=== PATIENT | male | born 1995 | race American Indian/Alaskan Native ===

== ENCOUNTER 2017-04-23 15:36 | Emergency (ER) | payer OTHER ==
[2017-04-23] MEDS ORDERED: FLEXERIL PO ONE (19:56)
[2017-04-23] MEDS ORDERED: NORCO 5/325 PO ONE (19:56)
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
[2017-04-23 21:14] VITALS: BP 138/94
== END 2017-04-23 21:13 | disposition home or self-care (01) ==
LOC: ED 15:36
DX: S16.1XXA Strain of muscle, fascia and tendon at neck level, initial encounter (principal); M62.830 Muscle spasm of back; F17.200 Nicotine dependence, unspecified, uncomplicated; V49.59XA Passenger injured in collision with other motor vehicles in traffic accident, initial encounter; Y93.9 Activity, unspecified; Y92.89 Other specified places as the place of occurrence of the external cause; Y99.9 Unspecified external cause status
CPT/HCPCS: 99282

== ENCOUNTER 2021-10-05 07:11 | Emergency (ER) | payer OTHER ==
[2021-10-05 07:28] VITALS: BP 148/79
[2021-10-05 08:28] LABS: Basophils % (Auto) 0.4 % (0.0-1.8); Hematocrit 45.6 % (35.5-45.6); Hemoglobin 14.8 gm/dl (11.8-15.2); Lymphocytes # (Auto) 0.9 K/mm3 (1.2-5.4); Lymphocytes % (Auto) 14.4 % (13.4-35.0); Mean Corpuscular HGB Conc 32 % (32-34); Mean Corpuscular Volume 86 fl (84-94); Monocytes # (Auto) 0.8 K/mm3 (0.0-0.8); Monocytes % (Auto) 12.5 % (0.0-7.3); Platelet Count 204 K/mm3 (140-440); Red Blood Count 5.33 M/mm3 (3.65-5.03); Red Cell Distribution Width 14.1 % (13.2-15.2)
[2021-10-05] MEDS ORDERED: levETIRAcetam 1000 MG/NS 0.75% 1,000 MG/100 ML BAG IV ONE (08:28)
--- NOTE | 2021-10-05 08:31 | Emergency Department Report ---
ED Seizure HPI - General Chief Complaint: Medical Clearance Stated Complaint: SEIZURE Time Seen by Provider: 10/05/21 07:58 Source: patient Mode of arrival: Ambulatory Limitations: No Limitations - History of Present Illness Initial Comments: Patient is 25 years old male with no significant past medical history. Patient presented to the ER for evaluation of possible seizure. Patient found by his with shaking and jerking movement and his eyes rolling back. Patient stated that he woke up and found EMS around his bed. Patient stated that he ne madi had any history of seizure before. He denied any drug abuse recently. Patient is complaining of headache. He denied any injury. MD Complaint: possible seizure -: This morning Description of Episode: loss of consciousness, tonic-clonic movement, post-event confusion Witnessed:: Yes Trauma: No Seizure History: none Place: home Possible Precipitating Event: none Associated Symptoms: denies other symptoms Treatments Prior to Arrival: none - Related Data Previous Rx's Medication Instructions Recorded Last Taken Type Cyclobenzaprine [Flexeril] 10 mg PO TID PRN #15 tablet 04/23/17 Unknown Rx Ibuprofen [Motrin] 600 mg PO Q8H PRN #15 tablet 04/23/17 Unknown Rx Doxycycline Hyclate 100 mg PO BID #20 tablet. 04/11/20 Unknown Rx Phenazopyridine [Pyridium] 200 mg PO TID #10 tab 04/11/20 Unknown Rx Allergies Allergy/AdvReac Type Severity Reaction Status Date / Time bacitracin Allergy Unknown Verified 04/23/17 16:08 [From Neosporin Plus] bacitracin zinc Allergy Unknown Verified 04/23/17 16:08 [From Neosporin Plus] lidocaine Allergy Unknown Verified 04/23/17 16:08 [From Neosporin Plus] neomycin sulfate Allergy Unknown Verified 04/23/17 16:08 [From Neosporin Plus] penicillin V Allergy Unknown Verified 10/05/21 07:24 Penicillins Allergy Unknown Verified 04/23/17 16:08 polymyxin B Allergy Unknown Verified 04/23/17 16:08 [From Neosporin Plus] polymyxin B sulfate Allergy Unknown Verified 04/23/17 16:08 [From Neosporin Plus] pramoxine Allergy Unknown Verified 04/23/17 16:08 [From Neosporin Plus] pramoxine HCl Allergy Unknown Verified 04/23/17 16:08 [From Neosporin Plus] ED Review of Systems ROS: Stated complaint: SEIZURE Other details as noted in HPI Comment: All other systems reviewed and negative Constitutional: denies: chills, fever Respiratory: denies: cough, shortness of breath, SOB with exertion Cardiovascular: denies: chest pain, palpitations Gastrointestinal: denies: abdominal pain, nausea, vomiting Musculoskeletal: denies: back pain Neurological: headache. denies: weakness, numbness, paresthesias, confusion, abnormal gait ED Past Medical Hx - Past Medical History Previous Medical History?: No - Surgical History Past Surgical History?: No - Social History Smoking Status: Never Smoker Substance Use Type: None - Medications Home Medications: Home Medications Medication Instructions Recorded Confirmed Last Taken Type Cyclobenzaprine [Flexeril] 10 mg PO TID PRN #15 tablet 04/23/17 Unknown Rx Ibuprofen [Motrin] 600 mg PO Q8H PRN #15 tablet 04/23/17 Unknown Rx Doxycycline Hyclate 100 mg PO BID #20 tablet. 04/11/20 Unknown Rx Phenazopyridine [Pyridium] 200 mg PO TID #10 tab 04/11/20 Unknown Rx ED Physical Exam - General Limitations: No Limitations General appearance: alert, in no apparent distress - Head Head exam: Present: atraumatic, normocephalic, normal inspection - Eye Eye exam: Present: normal appearance, PERRL - ENT ENT exam: Present: normal exam, normal orophraynx, mucous membranes moist - Neck Neck exam: Present: normal inspection, full ROM. Absent: tenderness, meningismus - Respiratory Respiratory exam: Present: normal lung sounds bilaterally - Cardiovascular Cardiovascular Exam: Present: regular rate, normal rhythm, normal heart sounds - GI/Abdominal GI/Abdominal exam: Present: soft, normal bowel sounds. Absent: distended, tenderness, guarding, rebound, rigid, organomegaly, mass, bruit, pulsatile mass, hernia - Extremities Exam Extremities exam: Present: normal inspection, full ROM, normal capillary refill. Absent: tenderness, pedal edema, joint swelling, calf tenderness - Back Exam Back exam: Present: normal inspection, full ROM. Absent: CVA tenderness (R), CVA tenderness (L) - Neurological Exam Neurological exam: Present: alert, oriented X3, CN II-XII intact, normal gait, reflexes normal. Absent: motor sensory deficit - Psychiatric Psychiatric exam: Present: normal mood - Skin Skin exam: Present: warm, intact, normal color ED Course Vital Signs 10/05/21 07:27 Temperature 99.5 F Pulse Rate 79 Respiratory 20 Rate Blood Pressure 148/79 [Right] O2 Sat by Pulse 100 Oximetry ED Medical Decision Making - Lab Data Result diagrams: 10/05/21 08:12 10/05/21 08:12 - Radiology Data Radiology results: report reviewed - Medical Decision Making Patient is 25 years old male with no significant past medical history. Patient presented to the ER for evaluation of possible seizure. Patient found by his with shaking and jerking movement and his eyes rolling back. Patient stated that he woke up and found EMS around his bed. Patient stated that he never had any history of seizure before. He denied any drug abuse recently. Patient is complaining of headache. He denied any injury. No seizure activity is observed in the ER. Patient received Keppra 1 g IV. Labs reviewed and is unremarkable. CT brain is negative for acute finding. Patient also received Toradol for headache. Patient started on Keppra and advised to follow-up with neurologist in the next 2 to 3 days and to return to the ER if he develop any new symptoms. Patient also advised to not operate any heavy machinery or drive. Critical care attestation.: If time is entered above; I have spent that time in minutes in the direct care of this critically ill patient, excluding procedure time. ED Disposition Clinical Impression: New onset seizure, Headache Disposition: 01 HOME / SELF CARE / HOMELESS Is pt being admited?: No Condition: Stable Instructions: Seizure, Adult Referrals: KAREY MACIEL MD [Referring] - 3-5 Days
[2021-10-05 08:51] LABS: Alanine Aminotransferase 25 units/L (7-56); Albumin 5.3 g/dL (3.9-5); BUN/Creatinine Ratio 17; Blood Urea Nitrogen 17 mg/dL (9-20); Calcium 9.3 mg/dL (8.4-10.2); Hemolysis Index 8
[2021-10-05 08:53] LABS: Bilirubin,Direct < 0.2 mg/dL (0-0.2)
--- NOTE | 2021-10-05 10:02 | Cat Scan Report ---
CT head without contrast INDICATION : NEW ONSET SEIZURE. TECHNIQUE: Axial imaging performed from the skull apex through the skull base without the use of con trast. All CT scans at this location are performed using CT dose reduction for ALARA by means of aut omated exposure control. COMPARISON: None FINDINGS: Parenchyma: No acute intracranial hemorrhage or parenchymal abnormality. Ventricles: Ventricles are normal in size and appear symmetric. Soft tissues: Soft tissues including the orbits appear normal. Bones: No acute osseous abnormality. Sinuses: Sinuses and mastoid air cells are clear. IMPRESSION: No acute abnormality. Signer Name: El Sidhu MD Signed: 10/05/2021 9:58 AM Workstation Name: [id number]
[2021-10-05 11:14] LABS: Amphetamine Screen,Urine Negative; Benzodiazepines Screen,Urine Negative; Cocaine Screen,Urine Negative; Methadone Screen,Urine Negative; Opiate Screen,Urine Negative
[2021-10-05 11:34] LABS: Cannabinoid Screen,Urine Positive
[2021-10-05] MEDS ORDERED: KETOROLAC 30 MG/1 ML INJ IV ONE (11:45)
[2021-10-05 11:46] LABS: Amorphous Crystals,Urine Few; Bacteria,Urine 1+ /HPF (Negative); Bilirubin,Urine NEG (Negative); Blood,Urine NEG (Negative); Color,Urine Yellow (Yellow); Mucus,Urine FEW /HPF; Urobilinogen,Urine < 2.0 mg/dL (<2.0)
== END 2021-10-05 12:40 | disposition home or self-care (01) ==
LOC: ED 07:11
DX: R56.9 Unspecified convulsions (principal); R51.9 Headache, unspecified; Z88.0 Allergy status to penicillin; Z88.8 Allergy status to other drugs, medicaments and biological substances; Z88.1 Allergy status to other antibiotic agents; Z79.899 Other long term (current) drug therapy
CPT/HCPCS: 36415; 70450; 80048; 80076; 80307; 81001; 85025; 96374; 96375; 99284; J1885; J1953

== ENCOUNTER 2022-03-07 06:19 | Emergency (ER) | payer SELFPAY ==
[2022-03-07] MEDS ORDERED: SODIUM CHLORIDE 0.9% 1000 ML 1,000 ML IV ONE (07:23)
[2022-03-07] MEDS ORDERED: levETIRAcetam 1000 MG/NS 0.75% 1,000 MG/100 ML BAG IV ONE (07:23)
--- NOTE | 2022-03-07 07:29 | Emergency Department Report ---
ED Seizure HPI - General Chief Complaint: Seizure Stated Complaint: SEIZURE X 3 Time Seen by Provider: 03/07/22 06:39 Source: patient Mode of arrival: Ambulatory Limitations: No Limitations - History of Present Illness Initial Comments: 26-year-old male with a history of remote seizure who now presents with several recent seizure episodes in the last 2 weeks. Patient denies any fever or chills. No chest pain, palpitation or shortness of breath reported. Patient denies any use of illicit drugs but smokes cigarettes. Patient is not currently taking any seizure medicine. No other modifying or associated factors reported. Patient mother who came in after his examination was completed reported that his first diagnosis of seizure was Alysha of 2020 and was started on Keppra 500 mg twice daily then but patient refused to take it. He then had another episode in November 2021 anterior 2 weeks ago when he started having several episodes that led to this current. Patient mother states he has been having this seizure [id number] every 2 hours since 12 midnight. MD Complaint: seizure - Related Data Previous Rx's Medication Instructions Recorded Last Taken Type Cyclobenzaprine [Flexeril] 10 mg PO TID PRN #15 tablet 04/23/17 Unknown Rx Ibuprofen [Motrin] 600 mg PO Q8H PRN #15 tablet 04/23/17 Unknown Rx Doxycycline Hyclate 100 mg PO BID #20 tablet. 04/11/20 Unknown Rx Phenazopyridine [Pyridium] 200 mg PO TID #10 tab 04/11/20 Unknown Rx levETIRAcetam [Keppra TAB] 500 mg PO BID #60 tablet 10/05/21 Unknown Rx Allergies Allergy/AdvReac Type Severity Reaction Status Date / Time bacitracin Allergy Unknown Verified 04/23/17 16:08 [From Neosporin Plus] bacitracin zinc Allergy Unknown Verified 04/23/17 16:08 [From Neosporin Plus] lidocaine Allergy Unknown Verified 04/23/17 16:08 [From Neosporin Plus] neomycin sulfate Allergy Unknown Verified 04/23/17 16:08 [From Neosporin Plus] penicillin V Allergy Unknown Verified 10/05/21 07:24 Penicillins Allergy Unknown Verified 04/23/17 16:08 polymyxin B Allergy Unknown Verified 04/23/17 16:08 [From Neosporin Plus] polymyxin B sulfate Allergy Unknown Verified 04/23/17 16:08 [From Neosporin Plus] pramoxine Allergy Unknown Verified 04/23/17 16:08 [From Neosporin Plus] pramoxine HCl Allergy Unknown Verified 04/23/17 16:08 [From Neosporin Plus] ED Review of Systems ROS: Stated complaint: SEIZURE X 3 Other details as noted in HPI Comment: All other systems reviewed and negative Neurological: other (Seizure) ED Past Medical Hx - Social History Smoking Status: Unknown if ever smoked Substance Use Type: Other - Medications Home Medications: Home Medications Medication Instructions Recorded Confirmed Last Taken Type Cyclobenzaprine [Flexeril] 10 mg PO TID PRN #15 tablet 04/23/17 Unknown Rx Ibuprofen [Motrin] 600 mg PO Q8H PRN #15 tablet 04/23/17 Unknown Rx Doxycycline Hyclate 100 mg PO BID #20 tablet. 04/11/20 Unknown Rx Phenazopyridine [Pyridium] 200 mg PO TID #10 tab 04/11/20 Unknown Rx levETIRAcetam [Keppra TAB] 500 mg PO BID #60 tablet 10/05/21 Unknown Rx ED Physical Exam - General Limitations: No Limitations General appearance: alert, in no apparent distress, postictal - Head Head exam: Present: atraumatic, normal inspection - Eye Eye exam: Present: normal appearance Pupils: Present: normal accommodation - ENT ENT exam: Present: normal exam, normal orophraynx, mucous membranes dry - Neck Neck exam: Present: normal inspection, full ROM. Absent: tenderness - Respiratory Respiratory exam: Present: normal lung sounds bilaterally. Absent: respiratory distress, accessory muscle use - Cardiovascular Cardiovascular Exam: Present: regular rate, normal rhythm, normal heart sounds - GI/Abdominal GI/Abdominal exam: Present: soft, normal bowel sounds. Absent: distended, tenderness - Extremities Exam Extremities exam: Present: normal inspection, full ROM, normal capillary refill. Absent: tenderness - Back Exam Back exam: Absent: tenderness - Neurological Exam Neurological exam: Present: alert, oriented X3 - Psychiatric Psychiatric exam: Present: normal affect, normal mood - Skin Skin exam: Present: warm, normal color ED Course Vital Signs 03/07/22 03/07/22 03/07/22 06:25 06:54 07:43 Temperature 98.4 F Pulse Rate 91 H 114 H Respiratory 22 22 Rate Blood Pressure 136/102 Blood Pressure 127/85 [Left] O2 Sat by Pulse 99 100 98 Oximetry 03/07/22 11:26 Temperature Pulse Rate 88 Respiratory 16 Rate Blood Pressure Blood Pressure 114/67 [Left] O2 Sat by Pulse 100 Oximetry - Reevaluation(s) Reevaluation #1: 03/07/22 07:39 here several seizure in the last 2 weeks--we will go ahead and start patient on Keppra 1 g and order routine labs including CBC, CMP, urinalysis for any infectious or electrolyte abnormality. We will also order TSH for likely thyroid abnormality. CT scan of the head will be ordered considering that the patient have had several episodes [id number] to rule out any intracranial abnormality as a cause. 03/07/22 07:44 Reevaluation #2: 03/07/22 07:45 Shortly got a call to the patient room that he was having seizure--we will go ahead and give 2 mg of Ativan for symptomatic relief and continued patient Keppra 1 g IV piggyback to prevent any recurrent and stabilize patient. Also given 1 L of IV fluid x1 for hydration. Reevaluation #3: 03/07/22 12:07 Patient reported feeling much better after dehydration and completed Keppra--patient is stable to be discharged home to continue previous antiepile ptic medication as prescribed by her primary doctor/neurology. ED Medical Decision Making - Lab Data Result diagrams: 03/07/22 07:40 03/07/22 07:40 Critical care attestation.: If time is entered above; I have spent that time in minutes in the direct care of this critically ill patient, excluding procedure time. ED Disposition Clinical Impression: Seizure Disposition: 01 HOME / SELF CARE / HOMELESS Is pt being admited?: No Does the pt Need Aspirin: No Condition: Stable Instructions: Seizure, Adult, [id number] Additional Instructions: Continue your current seizure medication as prescribed by your primary doctor and your neurology Please call and schedule follow-up with your primary doctor in the next 3 to 4 days for progress Please do not hesitate to call or return to emergency room if your symptoms worsen or recur Increase your daily fluid to help your hydration Please avoid excessive heat or cold to prevent exacerbation of your seizure Referrals: MALIK MIRANDA MD [Referring] - 3-5 Days Time of Disposition: 12:10
[2022-03-07] MEDS ORDERED: LORazepam 2 MG/ML VIAL ONE (07:30)
[2022-03-07] MEDS ORDERED: LORazepam 2 MG/ML VIAL IV ONE (07:47)
[2022-03-07 07:48] LABS: Bilirubin,Urine NEG (Negative); Blood,Urine MOD (Negative); Color,Urine Straw (Yellow); Mucus,Urine FEW /HPF; Urobilinogen,Urine < 2.0 mg/dL (<2.0)
[2022-03-07 07:53] LABS: Basophils % (Auto) 0.2 % (0.0-1.8); Eosinophils % (Auto) 0.1 % (0.0-4.3); Hemoglobin 13.8 gm/dl (11.8-15.2); Lymphocytes # (Auto) 2.3 K/mm3 (1.2-5.4); Lymphocytes % (Auto) 12.1 % (13.4-35.0); Mean Corpuscular HGB Conc 31 % (32-34); Mean Corpuscular Volume 89 fl (84-94); Monocytes # (Auto) 1.5 K/mm3 (0.0-0.8); Monocytes % (Auto) 7.9 % (0.0-7.3); Platelet Count 288 K/mm3 (140-440); Red Blood Count 4.95 M/mm3 (3.65-5.03); Red Cell Distribution Width 14.5 % (13.2-15.2)
[2022-03-07 07:56] LABS: Amphetamine Screen,Urine Negative; Benzodiazepines Screen,Urine Negative; Cocaine Screen,Urine Negative; Methadone Screen,Urine Negative; Opiate Screen,Urine Negative
[2022-03-07 08:08] LABS: Cannabinoid Screen,Urine Positive
[2022-03-07 08:16] LABS: Alanine Aminotransferase 19 units/L (7-56); Albumin 5.1 g/dL (3.9-5); BUN/Creatinine Ratio 17; Blood Urea Nitrogen 17 mg/dL (9-20); Calcium 8.9 mg/dL (8.4-10.2); Hemolysis Index 10
[2022-03-07 11:26] VITALS: BP 114/67
--- NOTE | 2022-03-07 15:58 | Cat Scan Report ---
CT BRAIN: 03/07/2022 INDICATION / CLINICAL INFORMATION: Seizure. COMPARISON: CT brain 10/05/2021 FINDINGS: BRAIN/INTRACRANIAL STRUCTURES: Unenhanced CT images of the brain were obtained and compared to the pr ior exam from 10/05/2021. There is been no change. There is no evidence of acute abnormality. Ventricles and sulci are normal in size and shape. There is no evidence of hemorrhage or mass. There are no abnormal extra-axial fluid collections. EXTRACRANIAL STRUCTURES: Unremarkable. IMPRESSION: No acute abnormality. Negative unenhanced CT of the brain. All CT scans at this location are performed using dose reduction to ALARA by means of automated expos ure control. Signer Name: Henri Augustin MD Signed: 03/07/2022 3:53 PM Workstation Name: [id number]
== END 2022-03-07 13:00 | disposition home or self-care (01) ==
LOC: ED 06:19
DX: R56.9 Unspecified convulsions (principal)
CPT/HCPCS: 36415; 70450; 80053; 80307; 81001; 85025; 96374; 96375; 99284; J1953; J2060; J7030; 80320; G0480